=== PATIENT | female | born 1945 | race Caucasian/White ===

== ENCOUNTER → 2017-06-18 | Outpatient (CLI) | payer MEDICARE, BC ==
[~2017-06-18] MED LIST: AMBIEN 5MG TABLE5 MG PO; ASPIRIN 81M81 MG/TA2 PO; CARDIZEM CD 12120 MG PO; CLARITIN 1010 MG/TAB PO; FOSAMAX 70MG TA70 MG PO; LEVOXYL0.088 MG PO; LEXAPRO 5MG5 MG PO; LIPITOR20 MG PO; PLAVIX 75MG TAB75 MG PO; PRIL40 PO; TYLENOL EXTRA500 M1 PO; ULTRAM 50MG TAB50 MG PO; XANAX .25M0.25 MG/TA PO; ZOCOR 20MG20 MG PO; ZOCOR 40MG40 MG PO
== END ==
LOC: MC.RAD 13:00
DX: Z12.31 Encounter for screening mammogram for malignant neoplasm of breast (principal)

== ENCOUNTER → 2018-06-08 | Outpatient (CLI) | payer MEDICARE, BC | LOC: MHCPAIN 09:30 | DX: G89.29 Other chronic pain (principal); M47.817 Spondylosis without myelopathy or radiculopathy, lumbosacral region; M54.16 Radiculopathy, lumbar region; M53.3 Sacrococcygeal disorders, not elsewhere classified | CPT/HCPCS: G0463 ==

== ENCOUNTER → 2018-06-10 | Outpatient (CLI) | payer MEDICARE, BC | LOC: MHCPAIN 06-09 13:45 | DX: M54.16 Radiculopathy, lumbar region (principal); M47.817 Spondylosis without myelopathy or radiculopathy, lumbosacral region | CPT/HCPCS: J1100; Q9967 ==

== ENCOUNTER → 2018-06-23 | Outpatient (CLI) | payer MEDICARE, BC | LOC: MHCPAIN 12:32 | DX: G89.29 Other chronic pain (principal); M47.817 Spondylosis without myelopathy or radiculopathy, lumbosacral region; M54.16 Radiculopathy, lumbar region; M53.3 Sacrococcygeal disorders, not elsewhere classified | CPT/HCPCS: G0463 ==

== ENCOUNTER → 2018-07-19 | Outpatient (CLI) | payer MEDICARE, BC | LOC: MC.RAD 08:32 | DX: Z12.31 Encounter for screening mammogram for malignant neoplasm of breast (principal) ==

== ENCOUNTER → 2018-09-21 | Outpatient (CLI) | payer MEDICARE, BC | LOC: MHCPAIN 12:48 | DX: G89.29 Other chronic pain (principal); M47.817 Spondylosis without myelopathy or radiculopathy, lumbosacral region; M54.16 Radiculopathy, lumbar region; M53.3 Sacrococcygeal disorders, not elsewhere classified | CPT/HCPCS: G0463 ==

== ENCOUNTER 2018-11-24 15:43 | Emergency (ER) | payer MEDICARE, BC ==
[~2018-11-24] VITALS: Ht 165.1 cm; Wt 63.6 kg
[2018-11-24 15:51] VITALS: TEMP 98
[2018-11-24 16:18] LABS: BASO % 0.4 % (0.0-2.0); EOS # 0.1 (0.0-0.7); EOS % 1.9 % (0-4.0); GRAN % 67.7 % (42.2-75.2); HEMATOCRIT 43.4 % (37.0-47.0); HEMOGLOBIN 13.9 g/dl (12.5-16.0); LYMPH # 1.7 (1.2-3.4); LYMPH % 22.7 % (20.0-51.0); MEAN CELL VOLUME 91 fl (80.0-100.0); MEAN CORPUSCULAR HEMOGLOBIN 29 pg (27.0-31.0); MEAN CORPUSCULAR HGB CONC 32 g/dl (33.0-37.0); MEAN PLATELET VOLUME 10.7 fl (7.4-10.4); MONO # 0.5 (0.1-0.6); PLATELET COUNT 238 K/mm3 (130-400); RED BLOOD COUNT 4.78 M/mm3 (4.10-5.30); REDCELL DISTRIBUTION WIDTH-CV 12.4 % (11.5-14.5)
[2018-11-24 16:19] LABS: PROTHROMBIN TIME 11.6 SECONDS (9.7-12.8)
[2018-11-24 16:22] LABS: PARTIAL THROMBOPLASTIN TIME 36.6 SECONDS (26.0-37.0)
[2018-11-24 16:29] LABS: ALANINE AMINOTRANSFERASE 29 U/L (9-52); ALBUMIN 4.3 gm/dL (3.5-5.0); ALKALINE PHOSPHATASE 73 U/L (50-136); ANION GAP 6 mmol/L (7-16); AST,SGOT 32 U/L (15-37); BILIRUBIN,TOTAL 0.4 mg/dL (0.0-1.0); BLOOD UREA NITROGEN 14 mg/dL (7-17); CALCIUM 9.5 mg/dL (8.4-10.2); CARBON DIOXIDE 26 mmol/L (22-30); CHLORIDE 106 mmol/L (98-107); CREATININE, serum 0.72 mg/dL (0.52-1.25); GLUCOSE 89 mg/dL (74-106); POTASSIUM 4.5 mmol/L (3.4-5.0); SODIUM 138 mmol/L (137-145); TOTAL PROTEIN 7.2 gm/dL (6.4-8.2)
[2018-11-24] MEDS ORDERED: ELIQUIS 5MG PO (16:42)
[2018-11-24 16:49] LABS: TROPONIN-I < 0.012 ng/mL (0.000-0.035)
[2018-11-24] MEDS ORDERED: LIPITOR20 MG PO (17:01)
[2018-11-24] MEDS ORDERED: TOPROL XL 25MG25 MG (17:04)
[2018-11-24] MEDS ORDERED: ALTACE 10MG TAB10 MG PO (17:04)
[2018-11-24] MEDS ORDERED: BIOTIN5000 MCG PO (17:05)
[2018-11-24 17:22] VITALS: BP 170/67; PULSE 60
== END 2018-11-24 17:12 | disposition home or self-care (01) ==
LOC: COL.ER 15:43
PROVIDERS: Emergency Medicine
DX: I48.91 Unspecified atrial fibrillation (principal); E78.5 Hyperlipidemia, unspecified; I10 Essential (primary) hypertension; Z79.82 Long term (current) use of aspirin

== ENCOUNTER → 2019-04-12 | Outpatient (CLI) | payer MEDICARE, BC ==
[~2019-04-12] MED LIST changes: +ALTACE 10MG TAB10 MG PO; +BIOTIN5000 MCG PO; +ELIQUIS 5MG PO; +TOPROL XL 25MG25 MG
== END ==
LOC: COL.PUL 12:58
DX: R06.02 Shortness of breath (principal); Z87.891 Personal history of nicotine dependence
CPT/HCPCS: J7674

== ENCOUNTER 2019-05-20 08:41 | Day surgery (SDC) | payer MEDICARE, BC ==
[~2019-05-20] VITALS: Ht 162.6 cm; Wt 65.2 kg
[2019-05-20] MEDS ORDERED: CPAP IH (09:32)
[2019-05-20] MEDS ORDERED: ZYRTEC 10MG10 MG PO (09:32)
[2019-05-20] MEDS ORDERED: CPAP (09:33)
[2019-05-20] MEDS ORDERED: MELAT3MGTAB PO (09:34)
[2019-05-20] MEDS ORDERED: COUMADIN4 MG PO (09:34)
[2019-05-20] MEDS ORDERED: MASON NATURAL2000 IU PO (09:35)
[2019-05-20 09:44] VITALS: BP 153/60; PULSE 49; TEMP 98.2
[2019-05-20] MEDS ORDERED: CEPHALEXIN500 M1 PO (10:38)
[2019-05-20 11:08] VITALS: BP 145/50; PULSE 58
--- NOTE | 2019-05-20 11:08 | NUR ---
Discharge instructions given to pt.Pt verbalizes understanding.Pt escorted out by Claudine Duarte.
== END 2019-05-20 11:50 | disposition home or self-care (01) ==
LOC: COL.CAR 08:41
DX: I48.0 Paroxysmal atrial fibrillation (principal); I10 Essential (primary) hypertension; E78.5 Hyperlipidemia, unspecified; I27.20 Pulmonary hypertension, unspecified; I73.9 Peripheral vascular disease, unspecified; I08.3 Combined rheumatic disorders of mitral, aortic and tricuspid valves; F41.9 Anxiety disorder, unspecified; E03.9 Hypothyroidism, unspecified; E78.2 Mixed hyperlipidemia; M81.0 Age-related osteoporosis without current pathological fracture; G47.30 Sleep apnea, unspecified; M31.6 Other giant cell arteritis; Z88.2 Allergy status to sulfonamides; Z88.3 Allergy status to other anti-infective agents; Z91.048 Other nonmedicinal substance allergy status; Z87.891 Personal history of nicotine dependence; Z80.6 Family history of leukemia; Z82.49 Family history of ischemic heart disease and other diseases of the circulatory system; Z84.1 Family history of disorders of kidney and ureter; Z82.3 Family history of stroke
CPT/HCPCS: C1764

== ENCOUNTER → 2019-08-05 | Outpatient (CLI) | payer MEDICARE, BC ==
[~2019-08-05] MED LIST changes: +CEPHALEXIN500 M1 PO; +COUMADIN4 MG PO; +CPAP; +CPAP IH; +MASON NATURAL2000 IU PO; +MELAT3MGTAB PO; +ZYRTEC 10MG10 MG PO
== END ==
LOC: MC.RAD 13:54
DX: Z12.31 Encounter for screening mammogram for malignant neoplasm of breast (principal)

== ENCOUNTER → 2020-08-07 | Outpatient (CLI) | payer MEDICARE, BC ==
[~2020-08-07] MED LIST changes: +ASPIRIN E.C. 8181 MG PO; +BETAPACE 80MG80 MG PO; +LUTEIN6 MG PO; -MELAT3MGTAB PO; +MELATIN 3 MG-11 TAB PO; -TOPROL XL 25MG25 MG; +TOPROL XL 25MG25 MG PO
== END ==
LOC: MC.RAD 11:15
DX: Z12.31 Encounter for screening mammogram for malignant neoplasm of breast (principal); N63.20 Unspecified lump in the left breast, unspecified quadrant

== ENCOUNTER → 2020-08-08 | Outpatient (CLI) | payer MEDICARE, BC | LOC: MC.RAD 14:20 | DX: N63.20 Unspecified lump in the left breast, unspecified quadrant (principal) ==

== ENCOUNTER → 2021-02-07 | Outpatient (CLI) | payer MEDICARE, BC | LOC: MC.RAD 14:00 | DX: R92.8 Other abnormal and inconclusive findings on diagnostic imaging of breast (principal) ==

== ENCOUNTER 2021-02-21 00:30 | Emergency (ER) | payer MEDICARE, BC ==
[~2021-02-21] VITALS: Ht 160 cm; Wt 59.1 kg
[2021-02-21 00:58] VITALS: TEMP 97.2
[2021-02-21 03:45] LABS: BASO % 0.4 % (0.0-2.0); EOS % 0.3 % (0-4.0); GRAN # 8.5 (1.4-6.5); GRAN % 80.8 % (42.2-75.2); HEMATOCRIT 40.8 % (37.0-47.0); LYMPH # 1.3 (1.2-3.4); LYMPH % 12.5 % (20.0-51.0); MEAN CELL VOLUME 94 fl (80.0-100.0); MEAN CORPUSCULAR HEMOGLOBIN 30 pg (27.0-31.0); MEAN CORPUSCULAR HGB CONC 32 g/dl (33.0-37.0); MEAN PLATELET VOLUME 10.8 fl (7.4-10.4); MONO # 0.6 (0.1-0.6); MONO % 5.6 % (1.7-9.3); PLATELET COUNT 242 K/mm3 (130-400); RED BLOOD COUNT 4.35 M/mm3 (4.10-5.30); REDCELL DISTRIBUTION WIDTH-CV 12.2 % (11.5-14.5)
[2021-02-21 03:55] LABS: CALCIUM 9.9 mg/dL (8.4-10.2); CREATININE, serum 0.59 (0.52-1.25); POTASSIUM 4.5 mmol/L (3.4-5.0)
[2021-02-21 04:00] LABS: INR 1.3 (0.8-3.0); PROTHROMBIN TIME 14.4 SECONDS (9.7-12.8)
[2021-02-21 04:03] LABS: PARTIAL THROMBOPLASTIN TIME 38.7 SECONDS (26.0-37.0)
[2021-02-21 04:10] VITALS: BP 145/68; PULSE 72
== END 2021-02-21 04:15 | disposition home or self-care (01) ==
LOC: COL.ER 00:30
PROVIDERS: Emergency Medicine
DX: L76.22 Postprocedural hemorrhage of skin and subcutaneous tissue following other procedure (principal); I48.91 Unspecified atrial fibrillation; Z98.61 Coronary angioplasty status; Z88.2 Allergy status to sulfonamides; Z88.8 Allergy status to other drugs, medicaments and biological substances; Z79.01 Long term (current) use of anticoagulants; Z79.82 Long term (current) use of aspirin; Z79.890 Hormone replacement therapy

== ENCOUNTER → 2021-08-26 | Outpatient (CLI) | payer MEDICARE, BC | LOC: MC.RAD 09:26 | DX: Z12.31 Encounter for screening mammogram for malignant neoplasm of breast (principal) ==

== ENCOUNTER 2022-05-01 08:53 | Inpatient (IN) | payer MEDICARE, BC ==
[2022-05-01] VITALS (186 sets, daily range): BP systolic 107–126; BP diastolic 38–67; PULSE 43–56; TEMP 97.9–98.1; O2SAT 83–100
[~2022-05-01] VITALS: Ht 161.3 cm; Wt 62.2 kg
[2022-05-01 10:08] LABS: BASO # 0.1 K/mm3 (0.0-0.2); BASO % 0.5 % (0.0-2.0); EOS # 0.1 K/mm3 (0.0-0.7); EOS % 1.2 % (0.0-4.0); GRAN # 7.7 K/mm3 (1.4-6.5); GRAN % 74.6 % (42.2-75.2); HEMATOCRIT 41.4 % (37.0-47.0); HEMOGLOBIN 13.1 g/dl (12.5-16.0); LYMPH # 1.8 K/mm3 (1.2-3.4); LYMPH % 17.1 % (20.0-51.0); MEAN CELL VOLUME 92 fl (80.0-100.0); MEAN CORPUSCULAR HEMOGLOBIN 29 pg (27-31); MEAN CORPUSCULAR HGB CONC 32 g/dl (33.0-37.0); MEAN PLATELET VOLUME 11.2 fl (7.4-10.4); MONO # 0.7 K/mm3 (0.1-0.6); MONO % 6.4 % (1.7-9.3); PLATELET COUNT 253 K/mm3 (130-400); RED BLOOD COUNT 4.48 M/mm3 (4.10-5.30); REDCELL DISTRIBUTION WIDTH-CV 12.8 % (11.5-14.5)
[2022-05-01 10:22] LABS: INR 1.3 (0.8-3.0); PROTHROMBIN TIME 15.4 SECONDS (9.7-12.8)
[2022-05-01 10:25] LABS: PARTIAL THROMBOPLASTIN TIME 47.5 SECONDS (26.0-37.0)
[2022-05-01 10:29] LABS: ALBUMIN 3.8 gm/dL (3.4-4.8); BILIRUBIN,TOTAL 0.7 mg/dL (0.2-1.2); CALCIUM 9.1 mg/dL (8.4-10.2); CREATININE, serum 0.78 mg/dL (0.57-1.11); POTASSIUM 4.4 mmol/L (3.5-4.5); TOTAL PROTEIN 6.2 gm/dL (6.2-8.1)
[2022-05-01 10:40] LABS: TROPONIN-I 0.042 ng/mL (0.00-0.033)
--- NOTE | 2022-05-01 11:25 | NUR ---
PT ARRIVED TO ICU 4 FROM ED VIA BED. PT AFIB RVR IN ED; NOW LATONIA DYSRHYTHMIA. HEART RATE IN 40'S; PATIENT ASYMTOMATIC. PT ALERT AND ORIENTED AND OFFERS NO COMPLAINTS. ABLE TO TRANSFER SELF FROM BED TO BED. LEVOPHED GTT TURNED OFF AT THIS TIME.
[2022-05-01] MEDS ORDERED: ATROVENTNS0.03% NS (15:28)
--- NOTE | 2022-05-01 21:26 | NUR ---
BEDSIDE SHIFT REPORT RECEIVED FROM SAVAGE BAIRES. PT CURRENTLY RESTING IN BED. NO C/O PAIN OR DISCOMFORT AT THIS TIME. VSS, NO ACUTE CHANGES NOTED.
[2022-05-02] VITALS (8 sets, daily range): BP systolic 120–164; BP diastolic 47–76; PULSE 51–77; TEMP 97.9–98.3
[2022-05-02 05:50] LABS: CALCIUM 8.4 mg/dL (8.4-10.2); CREATININE, serum 0.74 mg/dL (0.57-1.11); MAGNESIUM 1.7 mg/dL (1.6-2.6)
[2022-05-02 06:00] LABS: TROPONIN-I 0.411 ng/mL (0.00-0.033)
[2022-05-02 06:24] LABS: POTASSIUM 4.6 mmol/L (3.5-4.5)
--- NOTE | 2022-05-02 07:00 | NUR ---
BEDSIDE REPORT RECEIVED FROM COLLETTE TOMLINSON. PT ALERT AND ORIENTED THIS AM. NPO FOR JOCE SCAN AND POSSIBLE CATH. PT OFFERS NO COMPLAINTS. LIES SUPINE WITH HOB ELEVATED.
--- NOTE | 2022-05-02 10:28 | NUR ---
SW met with the patient to discuss discharge plan. The patient lives in [place] with her , Fredy (ph#[phone]). She reports indepedence with ADLs and does not have any DME. She states that she is very independent and exercises daily. She states that her does have Parkinson's and Alzheimer's Disease and his memory is getting worse. She states that her son, Hiram (ph#[phone]), is checking in on her and making sure he is taking his meds while she is here. The patient's PCP is Dr. Gin Ferro and she receives her medications from [facility]. The patient's DPOA-HC is in her chart and it designates her . The alternate is her son, Hiram. The patient plans to return home with her upon discharge. No additional needs at this time. *Discharge plan: home with *
[2022-05-02] MEDS ORDERED: BETAPACE 80MG80 MG PO (11:15)
--- NOTE | 2022-05-02 12:07 | NUR ---
PT D/C'D TO HOME. AMBULATORY AT TIME OF DISCHARGE. PT VERBALIZED UNDERSTANDING OF DISCHARGE INSTRTUCTIONS. ALL QUESTIONS ANSWERED APPROPRIATELY.
== END 2022-05-02 12:07 | disposition home or self-care (01) | DRG 280 ==
LOC: COL.ER 08:53 → ICU 10:33
PROVIDERS: Emergency Medicine; ADMIT Internal Medicine
DX: I48.0 Paroxysmal atrial fibrillation (principal); J96.01 Acute respiratory failure with hypoxia; I21.A1 Myocardial infarction type 2; G93.49 Other encephalopathy; I50.32 Chronic diastolic (congestive) heart failure; E78.5 Hyperlipidemia, unspecified; I27.20 Pulmonary hypertension, unspecified; I73.9 Peripheral vascular disease, unspecified; K21.9 Gastro-esophageal reflux disease without esophagitis; F41.9 Anxiety disorder, unspecified; G47.30 Sleep apnea, unspecified; I95.2 Hypotension due to drugs; E89.0 Postprocedural hypothyroidism; I08.3 Combined rheumatic disorders of mitral, aortic and tricuspid valves; I48.92 Unspecified atrial flutter; I11.0 Hypertensive heart disease with heart failure; T46.1X5A Adverse effect of calcium-channel blockers, initial encounter; Z79.01 Long term (current) use of anticoagulants; Z90.89 Acquired absence of other organs; Z88.2 Allergy status to sulfonamides; Z88.8 Allergy status to other drugs, medicaments and biological substances; Z91.048 Other nonmedicinal substance allergy status; Z72.89 Other problems related to lifestyle; Z79.82 Long term (current) use of aspirin; Z79.890 Hormone replacement therapy; Z87.891 Personal history of nicotine dependence; Z23 Encounter for immunization
CPT/HCPCS: A9500; J0171; J0610; J2405; J2785; J7030; J7060

== ENCOUNTER 2022-08-15 00:19 | Emergency (ER) | payer MEDICARE, BC ==
[~2022-08-15] VITALS: Ht 160 cm; Wt 56.8 kg
[~2022-08-15 00:19] MED LIST changes: +ATROVENTNS0.03% NS
[2022-08-15 00:24] VITALS: TEMP 97.8
[2022-08-15 00:44] LABS: BASO # 0.1 K/mm3 (0.0-0.2); EOS # 0.2 K/mm3 (0.0-0.7); EOS % 2.9 % (0.0-4.0); GRAN # 4.1 K/mm3 (1.4-6.5); GRAN % 52.3 % (42.2-75.2); HEMATOCRIT 41.8 % (37.0-47.0); HEMOGLOBIN 13.6 g/dl (12.5-16.0); LYMPH # 2.8 K/mm3 (1.2-3.4); MEAN CELL VOLUME 91 fl (80.0-100.0); MEAN CORPUSCULAR HEMOGLOBIN 30 pg (27-31); MEAN CORPUSCULAR HGB CONC 33 g/dl (33.0-37.0); MEAN PLATELET VOLUME 10.6 fl (7.4-10.4); MONO # 0.7 K/mm3 (0.1-0.6); MONO % 8.7 % (1.7-9.3); PLATELET COUNT 254 K/mm3 (130-400); REDCELL DISTRIBUTION WIDTH-CV 12.6 % (11.5-14.5)
[2022-08-15 00:51] LABS: INR 1.2 (0.8-3.0); PROTHROMBIN TIME 13.6 SECONDS (9.7-12.8)
[2022-08-15 01:02] LABS: ALANINE AMINOTRANSFERASE 22 U/L (0-55); ALBUMIN 4.1 gm/dL (3.4-4.8); ALKALINE PHOSPHATASE 73 U/L (40-150); ANION GAP 9 mmol/L (7-16); AST,SGOT 21 U/L (5-34); BILIRUBIN,TOTAL 0.4 mg/dL (0.2-1.2); BLOOD UREA NITROGEN 15 mg/dL (10-20); CALCIUM 9.6 mg/dL (8.4-10.2); CARBON DIOXIDE 22 mmol/L (23-31); CHLORIDE 107 mmol/L (98-107); CREATINE KINASE 88 U/L (29-168); CREATININE, serum 0.72 mg/dL (0.57-1.11); GLUCOSE 117 mg/dL (70-99); POTASSIUM 4.3 mmol/L (3.5-4.5); SODIUM 138 mmol/L (136-145); TOTAL PROTEIN 6.9 gm/dL (6.2-8.1)
[2022-08-15 01:09] LABS: TROPONIN-I < 0.010 ng/mL (0.00-0.033)
[2022-08-15 01:35] VITALS: BP 134/62; PULSE 61
== END 2022-08-15 01:42 | disposition home or self-care (01) ==
LOC: COL.ER 00:19
PROVIDERS: Emergency Medicine
DX: I48.20 Chronic atrial fibrillation, unspecified (principal); Z79.01 Long term (current) use of anticoagulants
CPT/HCPCS: J7030

== ENCOUNTER 2022-10-22 17:58 | Emergency (ER) | payer MEDICARE, BC ==
[~2022-10-22] VITALS: Ht 165.1 cm; Wt 58.2 kg
[2022-10-22 18:17] VITALS: TEMP 96
[2022-10-22 18:46] LABS: HEMATOCRIT 43.9 % (37.0-47.0); MEAN CELL VOLUME 94 fl (80.0-100.0); MEAN CORPUSCULAR HEMOGLOBIN 30 pg (27-31); MEAN CORPUSCULAR HGB CONC 32 g/dl (33.0-37.0); MEAN PLATELET VOLUME 10.8 fl (7.4-10.4); PLATELET COUNT 278 K/mm3 (130-400); RED BLOOD COUNT 4.69 M/mm3 (4.10-5.30); REDCELL DISTRIBUTION WIDTH-CV 12.1 % (11.5-14.5)
[2022-10-22 18:51] LABS: INR 1.3 (0.8-3.0); PROTHROMBIN TIME 14.7 SECONDS (9.7-12.8)
[2022-10-22 19:06] LABS: ALBUMIN 4.2 gm/dL (3.4-4.8); BILIRUBIN,TOTAL 0.7 mg/dL (0.2-1.2); CALCIUM 9.6 mg/dL (8.4-10.2); CREATININE, serum 0.8 mg/dL (0.57-1.11); POTASSIUM 4.6 mmol/L (3.5-4.5)
[2022-10-22 19:11] LABS: TROPONIN-I 0.014 ng/mL (0.00-0.033)
[2022-10-22 19:34] LABS: BAND 6 % (0-10); EOSINOPHIL 2 % (0-4); LYMPHOCYTE 31 % (20.0-51.0); NEUTROPHILS 59 % (42.0-75.2); PLATELET ESTIMATE NORMAL (NORMAL)
[2022-10-22 20:27] LABS: COLLECTION METHOD CLEAN CATCH
[2022-10-22 20:39] LABS: MUCOUS Present (NOT PRESENT); SQUAMOUS EPITHELIAL None Seen /hpf (0-10); URINE BACTERIA Rare /hpf (NONE SEEN)
[2022-10-22 20:45] LABS: PH 5.5 (5-8); URINE APPEARANCE Clear (CLEAR/HAZY); URINE BLOOD TRACE-INTACT (NEGATIVE); URINE COLOR Yellow (YELLOW); URINE GLUCOSE Negative (NEGATIVE); URINE NITRATE Negative (NEGATIVE); URINE PROTEIN(semi-quant) 2+ (NEGATIVE); URINE UROBILINOGEN 0.2 (NEGATIVE)
[2022-10-22 20:46] LABS: URINE KETONE 2+ (NEGATIVE)
[2022-10-22 21:58] VITALS: BP 149/62; PULSE 50
[2023-02-25] MEDS ORDERED: CALTRATE-600 W600 MG PO (12:23)
[2023-02-25] MEDS ORDERED: TYLENOL 325MG325 MG PO (12:25)
[2023-02-25] MEDS ORDERED: CEPHALEXIN500 M1 PO (13:47)
== END 2022-10-22 22:09 | disposition home or self-care (01) ==
LOC: COL.ER 17:58
PROVIDERS: Nurse Practitioner
DX: R00.0 Tachycardia, unspecified (principal); I48.0 Paroxysmal atrial fibrillation; Z79.01 Long term (current) use of anticoagulants
CPT/HCPCS: J7030

== ENCOUNTER 2023-02-12 16:43 | Emergency (ER) | payer MEDICARE, BC ==
[~2023-02-12] VITALS: Ht 162.6 cm; Wt 56.8 kg
[2023-02-12 16:46] VITALS: BP 155/61; TEMP 98.4
[2023-02-12 17:48] VITALS: PULSE 68
== END 2023-02-12 17:25 | disposition home or self-care (01) ==
LOC: COL.ER 16:43
DX: S50.11XA Contusion of right forearm, initial encounter (principal); Z79.01 Long term (current) use of anticoagulants; W22.8XXA Striking against or struck by other objects, initial encounter; Y92.512 Supermarket, store or market as the place of occurrence of the external cause